=== PATIENT | male | born 1960 | race Caucasian/White ===

== ENCOUNTER 2022-11-28 11:20 | Inpatient (IN) ==
[2022-11-28 13:51] LABS: ABS Basophils 0.1 10^3/uL (0.0-0.1); ABS Lymphocytes 1.3 10^3/uL (1.0-4.8); ABS Monocytes 1.1 10^3/uL (0.0-1.1); ABS Neutrophils 8.1 10^3/uL (1.5-7.6); ABS Nucleated RBC 0.03 10^3/ul; Eosinophil % 0.4 %; Hemoglobin 18.4 g/dL (13.2-16.3); Lymphocyte % 12.5 %; Mean Corpuscular Hemoglobin 32.9 pg (27-33); Mean Corpuscular Hgb Conc 33.5 g/dL (31-36); Mean Corpuscular Volume 98.3 fL (80-97); Mean Platelet Volume 8.9 fL (7.5-11.2); Nucleated Red Blood Cells % 0.3 /100 WBC (0.0-0.4); Platelet Count 137 10^3/uL (150-450); Red Blood Count 5.59 10^6/uL (4.06-5.63); Red Cell Distribution Width 15.2 % (12-17); White Blood Count 10.6 10^3/uL (3.6-10.2)
[2022-11-28 13:54] LABS: ALT 67 U/L (7-52); Albumin/Globulin Ratio 1.9 (1-3); Alkaline Phosphatase 56 U/L (35-149); Blood Urea Nitrogen 24 mg/dL (6-24); CO2 Carbon Dioxide 23 mmol/L (22-32); Calcium 9.1 mg/dL (8.6-10.3); Chloride 106 mmol/L (101-111); Creatinine, Serum 1.41 mg/dL (0.67-1.17); Globulin 2.1 g/dL (2-4); Glucose 116 mg/dL (70-100); Lipase 33 U/L (11.0-82.0); Sodium 137 mmol/L (135-145); Total Protein 6.1 g/dL (6.4-8.9); eGFR CKD-EPI 56.7 (>60)
[2022-11-28 13:56] LABS: Activated Partial Thrombo Time 29.3 seconds (26.0-38.0); INR 1.22 (0.83-1.13)
[2022-11-28 13:57] LABS: Anion Gap 8 mmol/L (2-16)
[2022-11-28 13:59] LABS: High Sens Troponin Baseline 17 pg/mL (<20)
[2022-11-28] MEDS ORDERED: Iodixanol (CONTRAST) 320 MG/ML 100 ML SDV IV ONE (14:38)
[2022-11-28] MEDS ORDERED: Furosemide 20 mg/2 ml IV VIAL IV SLOW PU ONE (15:37)
[2022-11-28 16:01] LABS: ABS Basophils 0.1 10^3/uL (0.0-0.1); ABS Eosinophils 0.1 10^3/uL (0.0-0.5); ABS Lymphocytes 1.3 10^3/uL (1.0-4.8); ABS Neutrophils 7.7 10^3/uL (1.5-7.6); ABS Nucleated RBC 0.01 10^3/ul; Eosinophil % 0.5 %; Hematocrit 52.2 % (38-53); Hemoglobin 17.7 g/dL (13.2-16.3); Lymphocyte % 12.5 %; Mean Corpuscular Hgb Conc 33.9 g/dL (31-36); Mean Corpuscular Volume 97.4 fL (80-97); Mean Platelet Volume 8.3 fL (7.5-11.2); Nucleated Red Blood Cells % 0.1 /100 WBC (0.0-0.4); Platelet Count 137 10^3/uL (150-450); Red Blood Count 5.36 10^6/uL (4.06-5.63); Red Cell Distribution Width 15.1 % (12-17); White Blood Count 10.1 10^3/uL (3.6-10.2)
[2022-11-28 16:23] LABS: High Sensitivity Troponin 1 Hr 17 pg/mL (<20)
[2022-11-28 16:25] LABS: Creatinine, Serum 1.27 mg/dL (0.67-1.17); Potassium Redraw 4.4 mmol/L (3.5-5.0); eGFR CKD-EPI 64.3 (>60)
[2022-11-28] MEDS: Heparin 5000 UNITS/ML 1 mL VIAL IV SCH (16:35)
[2022-11-28] MEDS: Heparin DRIP 25,000 UNITS BAG 25,000 UNITS/500 ML BAG IV SCH (16:42)
[2022-11-29 03:52] LABS: ABS Basophils 0.1 10^3/uL (0.0-0.1); ABS Lymphocytes 1.1 10^3/uL (1.0-4.8); ABS Monocytes 1.1 10^3/uL (0.0-1.1); ABS Neutrophils 8.1 10^3/uL (1.5-7.6); ABS Nucleated RBC 0.02 10^3/ul; Eosinophil % 0.4 %; Hematocrit 50.8 % (38-53); Hemoglobin 17.7 g/dL (13.2-16.3); Lymphocyte % 10.3 %; Mean Corpuscular Hemoglobin 33.7 pg (27-33); Mean Corpuscular Hgb Conc 34.8 g/dL (31-36); Mean Corpuscular Volume 96.8 fL (80-97); Mean Platelet Volume 8.6 fL (7.5-11.2); Nucleated Red Blood Cells % 0.1 /100 WBC (0.0-0.4); Platelet Count 144 10^3/uL (150-450); Red Blood Count 5.25 10^6/uL (4.06-5.63); Red Cell Distribution Width 15.1 % (12-17); White Blood Count 10.5 10^3/uL (3.6-10.2)
[2022-11-29 03:57] LABS: Calcium 8.7 mg/dL (8.6-10.3); Creatinine, Serum 1.43 mg/dL (0.67-1.17); Magnesium 1.8 mg/dL (1.9-2.7); Phosphorus 2.8 mg/dL (2.5-5.0); Potassium 4.3 mmol/L (3.5-5.0); eGFR CKD-EPI 55.7 (>60)
[2022-11-29] MEDS: Heparin 5000 UNITS/ML 1 mL VIAL IV SCH ×2 (04:16→17:47)
[2022-11-29] MEDS ORDERED: Magnesium Sulfate IV 1GM/100ML 1 GM/100 ML BAG IV ONE (06:23)
[2022-11-29] MEDS: Heparin DRIP 25,000 UNITS BAG 25,000 UNITS/500 ML BAG IV SCH ×2 (07:19→21:49)
[2022-11-29] MEDS ORDERED: Sulfur Hexaflouride MICROSPHR 25 MG VIAL ONE (07:52)
[2022-11-29] MEDS ORDERED: Midazolam 10 mg/10 ml VIAL 1 mg/ml 10 ml VIAL (10 mg) IV SLOW PU ONE (21:23)
[2022-11-29] MEDS ORDERED: fentaNYL 100 mcg/2 ml 50 MCG/ML VIAL IV SLOW PU ONE (21:23)
[2022-11-30 06:34] LABS: ABS Lymphocytes 1.2 10^3/uL (1.0-4.8); ABS Monocytes 1.4 10^3/uL (0.0-1.1); ABS Neutrophils 9.2 10^3/uL (1.5-7.6); Eosinophil % 0.3 %; Hematocrit 51.2 % (38-53); Hemoglobin 17.6 g/dL (13.2-16.3); Lymphocyte % 10.2 %; Mean Corpuscular Hemoglobin 33.5 pg (27-33); Mean Corpuscular Hgb Conc 34.4 g/dL (31-36); Mean Corpuscular Volume 97.3 fL (80-97); Mean Platelet Volume 7.9 fL (7.5-11.2); Platelet Count 135 10^3/uL (150-450); Red Blood Count 5.26 10^6/uL (4.06-5.63); Red Cell Distribution Width 15.3 % (12-17); White Blood Count 11.9 10^3/uL (3.6-10.2)
[2022-11-30 06:55] LABS: Calcium 8.2 mg/dL (8.6-10.3); Creatinine, Serum 1.35 mg/dL (0.67-1.17); Magnesium 2.1 mg/dL (1.9-2.7); Phosphorus 3.2 mg/dL (2.5-5.0); Potassium 4.3 mmol/L (3.5-5.0); eGFR CKD-EPI 59.7 (>60)
[2022-11-30] MEDS ORDERED: Midazolam 5 mg/5 ml VIAL 1 mg/ml 5 ml VIAL (5 mg) ONE (08:00)
[2022-11-30] MEDS ORDERED: Midazolam 10 mg/10 ml VIAL 1 mg/ml 10 ml VIAL (10 mg) IV SLOW PU ONE (08:00)
[2022-11-30] MEDS ORDERED: fentaNYL 100 mcg/2 ml 50 MCG/ML VIAL ONE (08:00)
[2022-11-30] MEDS ORDERED: Naloxone 0.4 mg VIAL 0.4 mg/ml 1 ml VIAL ONE (08:00)
[2022-11-30] MEDS ORDERED: Flumazenil 0.5 mg/5 ml 0.1 MG/ML 5 ml VIAL ONE (08:00)
[2022-11-30] MEDS ORDERED: fentaNYL 100 mcg/2 ml 50 MCG/ML VIAL IV SLOW PU ONE (08:00)
[2022-11-30] MEDS ORDERED: Amiodarone 150 mg IVPREMIX 150 MG/100 ML BAG IV ONE (10:16)
[2022-11-30] MEDS ORDERED: .Amiodarone 24HR ONLY IV Protocol Order Note IV ONE (10:16)
[2022-11-30] MEDS ORDERED: Amiodarone 360 MG IVPREMIX 360 MG/200 ML BAG IV SCH (10:30)
[2022-11-30] MEDS: Heparin DRIP 25,000 UNITS BAG 25,000 UNITS/500 ML BAG IV SCH (10:42)
[2022-11-30] MEDS ORDERED: Benzocaine (plain) Lozenge 15 MG MT PRN (14:24)
[2022-11-30] MEDS ORDERED: Benzocaine/Menthol LOZ MT PRN ×3 (14:45→15:33)
[2022-11-30] MEDS: Amiodarone 360 MG IVPREMIX 360 MG/200 ML BAG IV SCH (16:56)
[2022-12-01] MEDS: Amiodarone 360 MG IVPREMIX 360 MG/200 ML BAG IV SCH (05:05)
[2022-12-01 05:46] LABS: ABS Eosinophils 0.1 10^3/uL (0.0-0.5); ABS Lymphocytes 1.1 10^3/uL (1.0-4.8); ABS Monocytes 1.2 10^3/uL (0.0-1.1); ABS Neutrophils 9.8 10^3/uL (1.5-7.6); ABS Nucleated RBC 0.01 10^3/ul; Eosinophil % 0.7 %; Hematocrit 53.2 % (38-53); Hemoglobin 18.5 g/dL (13.2-16.3); Lymphocyte % 9.2 %; Mean Corpuscular Hemoglobin 33.5 pg (27-33); Mean Corpuscular Hgb Conc 34.7 g/dL (31-36); Mean Corpuscular Volume 96.6 fL (80-97); Mean Platelet Volume 8.4 fL (7.5-11.2); Platelet Count 156 10^3/uL (150-450); Red Blood Count 5.51 10^6/uL (4.06-5.63); Red Cell Distribution Width 15.1 % (12-17); White Blood Count 12.3 10^3/uL (3.6-10.2)
[2022-12-01 06:06] LABS: Blood Urea Nitrogen 22 mg/dL (6-24); CO2 Carbon Dioxide 22 mmol/L (22-32); Chloride 103 mmol/L (101-111); Creatinine, Serum 1.23 mg/dL (0.67-1.17); Glucose 110 mg/dL (70-100); Magnesium 2.1 mg/dL (1.9-2.7); Sodium 135 mmol/L (135-145); eGFR CKD-EPI 66.8 (>60)
[2022-12-01 06:10] LABS: Anion Gap 10 mmol/L (2-16)
[2022-12-01 07:42] LABS: Potassium Redraw 4.3 mmol/L (3.5-5.0)
[2022-12-01 07:47] LABS: Phosphorus 2.7 mg/dL (2.5-5.0)
[2022-12-01 12:03] VITALS: BP 130/107
== END 2022-12-01 14:00 | disposition home or self-care (01) | DRG 201 ==
LOC: ED 11:20 → EDHOLD 18:22 → ICU 20:13
PROVIDERS: ADMIT Student in an Organized Health Care Education/Training Program; ATTEND Student in an Organized Health Care Education/Training Program